=== PATIENT | male | born 1985 | race Caucasian/White ===

== ENCOUNTER 2017-07-25 06:19 | Emergency (ER) | payer BC ==
[~2017-07-25] VITALS: Ht 5.1 cm; Wt 95.5 kg
[~2017-07-25 06:19] MED LIST: AMOXICILLIN 8751 TAB PO; RITALIN 20M20 MG/TAB PO
[2017-07-25 06:37] LABS: ALANINE AMINOTRANSFERASE 40 U/L (21-72); ALBUMIN 4.1 gm/dL (3.5-5.0); ALCOHOL(ethanol),MEDICAL 42 mg/dL; ALKALINE PHOSPHATASE 56 U/L (50-136); ANION GAP 16 mmol/L (7-16); AST,SGOT 36 U/L (15-37); BASO % 0.6 % (0.0-2.0); BILIRUBIN,TOTAL 0.5 mg/dL (0.0-1.0); BLOOD UREA NITROGEN 13 mg/dL (9-20); CALCIUM 9.1 mg/dL (8.4-10.2); CARBON DIOXIDE 23 mmol/L (22-30); CHLORIDE 105 mmol/L (98-107); CREATININE, serum 0.82 mg/dL (0.66-1.25); EOS # 0.1 (0.0-0.7); EOS % 1.5 % (0-4.0); GLUCOSE 93 mg/dL (74-106); GRAN # 3.3 (1.4-6.5); GRAN % 62.4 % (42.2-75.2); HEMATOCRIT 42.4 % (42.0-52.0); HEMOGLOBIN 14.8 g/dl (13.5-18.0); LYMPH # 1.4 (1.2-3.4); LYMPH % 25.9 % (20.0-51.0); MEAN CELL VOLUME 94 fl (80.0-100.0); MEAN CORPUSCULAR HEMOGLOBIN 33 pg (27.0-31.0); MEAN CORPUSCULAR HGB CONC 35 g/dl (33.0-37.0); MEAN PLATELET VOLUME 10.5 fl (7.4-10.4); MONO # 0.5 (0.1-0.6); MONO % 9.4 % (1.7-9.3); PLATELET COUNT 181 K/mm3 (130-400); POTASSIUM 3.7 mmol/L (3.4-5.0); RED BLOOD COUNT 4.51 M/mm3 (4.20-5.60); REDCELL DISTRIBUTION WIDTH-CV 11.8 % (11.5-14.5); SODIUM 145 mmol/L (137-145); TOTAL PROTEIN 7.4 gm/dL (6.4-8.2)
[2017-07-25 06:42] LABS: PARTIAL THROMBOPLASTIN TIME 31.6 SECONDS (26.0-37.0); PROTHROMBIN TIME 11.5 SECONDS (9.7-12.8)
[2017-07-25] MEDS ORDERED: XANAX 1MG1 MG PO (06:46)
[2017-07-25 10:28] LABS: GLUCOSE,CSF 52 mg/dL (40-70); TOTAL PROTEIN,CSF 50 mg/dL (15-45)
[2017-07-25 11:08] LABS: CSF APPEARANCE CLEAR; CSF COLOR COLORLESS; CSF MONONUCLEAR 0 % (70-100); CSF POLYMORPHONUCLEAR 0 % (0-6); CSF RBC 0 /mm3 (0-0)
[2017-07-25 11:19] LABS: CSF APPEARANCE CLEAR; CSF COLOR COLORLESS; CSF RBC 0 /mm3 (0-0)
[2017-07-25 11:20] LABS: CSF MONONUCLEAR 75 % (70-100); CSF POLYMORPHONUCLEAR 25 % (0-6)
[2017-07-25] MEDS ORDERED: FIORICET 325 MG1 TA1 PO (13:02)
[2017-07-25 13:23] VITALS: BP 157/100; PULSE 82; TEMP 98.1
== END 2017-07-25 13:22 | disposition home or self-care (01) ==
LOC: COL.ER 06:19
PROVIDERS: Emergency Medicine
DX: R51 Headache (principal); F41.9 Anxiety disorder, unspecified; F90.9 Attention-deficit hyperactivity disorder, unspecified type; Z90.89 Acquired absence of other organs
CPT/HCPCS: J1170; J1885; J2060; J7030

== ENCOUNTER → 2017-10-09 | Outpatient (CLI) | payer BC ==
[~2017-10-09] MED LIST changes: +FIORICET 325 MG1 TA1 PO; +XANAX 1MG1 MG PO
== END ==
LOC: MHCPAIN 10:04
DX: G89.29 Other chronic pain (principal); M54.81 Occipital neuralgia; M79.2 Neuralgia and neuritis, unspecified; M79.1 Myalgia
CPT/HCPCS: G0463